=== PATIENT | male | born 1995 | race Asian ===

== ENCOUNTER → 2016-08-11 | Outpatient (CLI) | payer OTHER ==
[2016-08-11 11:41] LABS: BASOPHILS % (AUTO) 1.5 % (0.0-2.0); EOSINOPHILS % (AUTO) 3.2 % (1.0-6.0); HEMATOCRIT 44.5 % (41-53); HEMOGLOBIN 15.2 g/dL (13.5-17.5); LYMPHOCYTES # (AUTO) 2.1 K/uL (1.0-4.8); LYMPHOCYTES % (AUTO) 45.3 % (22.0-44.0); MEAN CORPUSCULAR HEMOGLOBIN 30.6 pg (26.0-34.0); MEAN CORPUSCULAR HGB CONC 34.1 G/dL (31.0-37.0); MEAN CORPUSCULAR VOLUME 89 fL (80-100); MONOCYTES # (AUTO) 0.3 K/uL (0.1-1.0); MONOCYTES % (AUTO) 5.8 % (2.0-9.0); NEUTROPHILS % (AUTO) 44.2 % (40.0-70.0); PLATELET COUNT (AUTO) 214 K/uL (150-450); RED BLOOD CELL COUNT(AUTO) 4.97 MIL/uL (4.50-5.90); RED CELL DISTRIBUTION WIDTH 12.3 % (11.5-14.5); WHITE BLOOD COUNT (AUTO) 4.6 K/uL (4.5-11.0)
[2016-08-11 12:02] LABS: ALANINE AMINOTRANSFERASE 41 U/L (12-78); ALBUMIN 4.2 g/dL (3.4-5.0); ANION GAP 5 mmol/L (8-16); ASPARTATE AMINOTRANSFERASE 19 U/L (15-37); BILIRUBIN,TOTAL 0.5 mg/dL (0.1-1.0); CALCIUM, TOTAL 9.1 mg/dL (8.8-10.5); CARBON DIOXIDE 30 mmol/L (22-29); CHLORIDE 104 mmol/L (98-107); GLOMERULAR FILTR. RATE CALC > 60 mL/min (>60); POTASSIUM 4.4 mmol/L (3.5-5.1); SODIUM SERUM 139 mmol/L (136-145); THYROID STIMULATING HORMONE 1.81 uIU/mL (0.36-3.74); TOTAL PROTEIN, SERUM 7.3 g/dL (6.4-8.2); UREA NITROGEN, BLOOD 14 mg/dL (7-18)
== END | disposition home or self-care (01) ==
LOC: LABPV 10:51
PROVIDERS: ATTEND Internal Medicine
DX: Z00.00 Encounter for general adult medical examination without abnormal findings (principal)
CPT/HCPCS: 84443

== ENCOUNTER → 2016-09-08 | Outpatient (CLI) | payer OTHER ==
[2016-09-20 18:07] LABS: ALLERGEN A. FUMIGATUS <0.10 kU/L (Class 0); ALLERGEN ALTERNARIA ALTERNATA <0.10 kU/L (Class 0); ALLERGEN BAHIA GRASS <0.10 kU/L (Class 0); ALLERGEN BERMUDA GRASS <0.10 kU/L (Class 0); ALLERGEN BROME SMOOTH GRASS <0.10 kU/L (Class 0); ALLERGEN CAT HAIR/DANDER <0.10 kU/L (Class 0); ALLERGEN CLADOSPORIUM HERBARUM <0.10 kU/L (Class 0); ALLERGEN CODFISH IGE <0.10 kU/L (Class 0); ALLERGEN COMMON SILVER BIRCH <0.10 kU/L (Class 0); ALLERGEN D. PTERNYSSINUS 6.39 kU/L (Class IV); ALLERGEN DOG HAIR/DANDER 0.26 kU/L (Class 0/I); ALLERGEN EGG WHITE IGE <0.10 kU/L (Class 0); ALLERGEN EUCALYPTUS TREE <0.10 kU/L (Class 0); ALLERGEN LENSCALE <0.10 kU/L (Class 0); ALLERGEN MILK IGE 0.31 kU/L (Class 0/I); ALLERGEN MIMOSA/ACACIA TREE <0.10 kU/L (Class 0); ALLERGEN NETTLE <0.10 kU/L (Class 0); ALLERGEN OLIVE TREE <0.10 kU/L (Class 0); ALLERGEN PEANUT IGE <0.10 kU/L (Class 0); ALLERGEN PECAN TREE <0.10 kU/L (Class 0); ALLERGEN PENICILLIUM CHRYSOGEN <0.10 kU/L (Class 0); ALLERGEN PIGWEED <0.10 kU/L (Class 0); ALLERGEN RUSSIAN THISTLE <0.10 kU/L (Class 0); ALLERGEN RYE PERENNIAL <0.10 kU/L (Class 0); ALLERGEN SOYBEAN IGE <0.10 kU/L (Class 0); ALLERGEN STEMPHYLIUM HERBARUM <0.10 kU/L (Class 0); ALLERGEN WALNUT (TREE) <0.10 kU/L (Class 0); ALLERGEN WHEAT IGE <0.10 kU/L (Class 0); ALLERGEN WHITE MULBERRY TREE <0.10 kU/L (Class 0); ALLERGEN WHITE OAK TREE <0.10 kU/L (Class 0); ALLERGEN WORMWOOD/SAGEBRUSH <0.10 kU/L (Class 0)
== END | disposition home or self-care (01) ==
LOC: LABPV 09:35
PROVIDERS: ATTEND Internal Medicine
DX: R21 Rash and other nonspecific skin eruption (principal)
CPT/HCPCS: 86003